=== PATIENT | female | born 1950 | race Caucasian/White ===

== ENCOUNTER 2016-12-05 10:58 | Emergency (ER) | payer MEDICARE, BC ==
[2016-12-05 11:11] VITALS: BP 122/84
--- NOTE | 2016-12-05 11:32 | UC ---
Complaint Female HPI - HPI Summary HPI Summary: Frequency and dysuria since yesterday. - History Of Current Complaint Chief Complaint: UCGU Stated Complaint: URINARY COMPLAINT Time Seen by Provider: 12/05/16 11:21 ?: No Onset/Duration: Gradual Onset Timing: Constant Severity Initially: Moderate Severity Currently: Moderate Character: Burning Aggravating Factor(s): Urination Associated Signs And Symptoms: Positive: Back Pain. Negative: Fever, Nausea, Vomiting(# Of Episodes =) - Allergies/Home Medications Allergies/Adverse Reactions: Allergies Allergy/AdvReac Type Severity Reaction Status Date / Time Codeine Allergy See Comment Verified 12/05/16 11:13 Sulfa Antibiotics Allergy Hives Verified 12/05/16 11:13 Home Medications: Home Medications Cranberry (Vaccinium Macrocarp [Cranberry] 1 tab PO DAILY PRN 12/05/16 [History Confirmed 12/05/16] Estradiol VAGINAL TAB(NF) [Vagifem] 1 tab PO SEE INSTRUCTIONS 12/05/16 [History Confirmed 12/05/16] Ibuprofen [Advil] 400 mg PO Q8HR PRN 12/05/16 [History Confirmed 12/05/16] Levothyroxine TAB* [Synthorid 112 MCG TAB*] 1 tab PO DAILY 12/05/16 [History Confirmed 12/05/16] buPROPion TAB* [Wellbutrin TAB*] 0.5 tab PO DAILY 12/05/16 [History Confirmed ] PMH/Surg Hx/FS Hx/Imm Hx Previously Healthy: Yes - she has hx of uti but last was distant. Endocrine History Of: Reports: Thyroid Disease - Surgical History Surgical History: Yes Surgery Procedure, Year, and Place: Hysterectomy; T&A; Appendectomy; tubal ligation; Umbilical hernia repair. - Family History Known Family History: Positive: Other - no related PMH. - Social History Alcohol Use: Occasionally Substance Use Type: None Smoking Status (MU): Former Smoker Have You Smoked in the Last Year: No When Did the Patient Quit Smoking/Using Tobacco: 1979 Review of Systems All Other Systems Reviewed And Are Negative: Yes Physical Exam Triage Information Reviewed: Yes Appearance: Well-Appearing, No Pain Distress, Well-Nourished Vital Signs: Initial Vital Signs Temp 98.6 F 12/05/16 11:06 Pulse 99 12/05/16 11:06 Resp 16 12/05/16 11:06 BP 122/84 12/05/16 11:06 Pulse Ox 98 12/05/16 11:06 Vital Signs Reviewed: Yes Eyes: Positive: Conjunctiva Clear. Negative: Conjunctiva Inflamed ENT Exam: Normal Neck exam: Normal Respiratory Exam: Normal Cardiovascular Exam: Normal Abdominal Exam: Other - mild tendernss of the suprapubic area and no cvat. Musculoskeletal Exam: Normal Neurological Exam: Normal Psychological Exam: Normal Skin Exam: Normal Skin: Negative: rashes Complaint Female Dx - Differential Dx/Diagnosis Provider Diagnoses: uti Discharge - Discharge Plan Condition: Good Disposition: HOME Prescriptions: Nitrofurantoin Monohyd Macro [Macrobid] 100 mg PO BID #20 cap Patient Education Materials: Urinary Tract Infection in Women (ED) Referrals: Rut Jensen MD [Primary Care Provider] - If Needed
== END 2016-12-05 11:54 | disposition home or self-care (01) ==
LOC: UCCORT 10:58
DX: N39.0 Urinary tract infection, site not specified (principal); Z87.440 Personal history of urinary (tract) infections; E07.9 Disorder of thyroid, unspecified; Z90.710 Acquired absence of both cervix and uterus; Z88.5 Allergy status to narcotic agent; Z88.2 Allergy status to sulfonamides; Z87.891 Personal history of nicotine dependence
CPT/HCPCS: 81003; 87086; 99212; G0463

== ENCOUNTER 2017-11-18 12:04 | Emergency (ER) | payer MEDICARE, BC ==
[2017-11-18 12:39] VITALS: BP 118/78
--- NOTE | 2017-11-18 12:59 | UC ---
Respiratory Complaint HPI - HPI Summary HPI Summary: Cough and congestion for about two weeks. She has had subjective fever. She has had sinus pressure. She has green sykes productive sputum. She denies lung disease/copd/asthma. She does not usually need steroids or inhalers with bronchitis. She has right chest pain with cough and deep breaths. - History of Current Complaint Chief Complaint: UCRespiratory Stated Complaint: CONGESTION Time Seen by Provider: 11/18/17 12:25 Hx Obtained From: Patient ?: No Onset/Duration: Gradual Onset, Lasting Weeks Timing: Constant Severity Initially: Moderate Severity Currently: Moderate Pain Intensity: 3 Character: Cough: Productive Aggravating Factors: Deep Breaths, Recumbent Position Alleviating Factors: Upright Position, Spontaneous Resolution Associated Signs And Symptoms: Positive: Fever, Chills, Pleuritic Chest Pain, Wheezing, URI, Nasal Congestion, Sinus Discomfort. Negative: Hemoptysis, Calf Pain, Calf Swelling - Allergies/Home Medications Allergies/Adverse Reactions: Allergies Allergy/AdvReac Type Severity Reaction Status Date / Time codeine Allergy See Comment Verified 11/18/17 12:32 Sulfa (Sulfonamide Allergy Hives Verified 11/18/17 12:32 Antibiotics) Home Medications: Home Medications Cyanocobalamin TAB* [Vitamin B12 TAB*] 1 tab DAILY 11/18/17 [History Confirmed 11/18/17] PMH/Surg Hx/FS Hx/Imm Hx Previously Healthy: Yes - Surgical History Surgical History: Yes Surgery Procedure, Year, and Place: Hysterectomy; T&A; Appendectomy; tubal ligation; Umbilical hernia repair. - Family History Known Family History: Positive: Other - no related PMH. - Social History Lives: With Family Alcohol Use: Rare Substance Use Type: None Smoking Status (MU): Former Smoker Have You Smoked in the Last Year: No When Did the Patient Quit Smoking/Using Tobacco: 1979 Review of Systems ENT: Sore Throat, Ear Ache, Sinus Congestion Respiratory: Cough All Other Systems Reviewed And Are Negative: Yes Physical Exam Triage Information Reviewed: Yes Appearance: Well-Appearing, No Pain Distress, Well-Nourished Vital Signs: Initial Vital Signs Temp 99.7 F 11/18/17 12:34 Pulse 80 11/18/17 12:34 Resp 16 11/18/17 12:34 BP 118/78 11/18/17 12:34 Pulse Ox 97 11/18/17 12:34 Vital Signs Reviewed: Yes Eyes: Positive: Conjunctiva Clear. Negative: Conjunctiva Inflamed ENT: Positive: Normal ENT inspection, Hearing grossly normal, Pharynx normal, Nasal congestion, TMs normal, TM bulging, TM dull, TM red, Tonsillar swelling, Tonsillar exudate, Uvula midline. Negative: Pharyngeal erythema, Trismus, Sinus tenderness Neck: Positive: Supple, Nontender, No Lymphadenopathy Respiratory: Positive: No respiratory distress, No accessory muscle use, Rhonchi - rhonchi mild isolated to the RLL with good air movement there and throughout.. Negative: Respiratory distress, Decreased breath sounds, Accessory muscle use, Crackles Cardiovascular: Positive: No Murmur, Pulses Normal, Brisk Capillary Refill Abdomen Description: Positive: No Organomegaly, Soft. Negative: Distended, Guarding Musculoskeletal: Positive: Strength Intact, ROM Intact, No Edema Neurological: Positive: Alert, Muscle Tone Normal. Negative: Fatigued Psychological: Positive: Age Appropriate Behavior Skin: Negative: rashes UC Diagnostic Evaluation - Laboratory O2 Sat by Pulse Oximetry: 97 Respiratory Course/Dx - Course Course Of Treatment: we discusssed supportive care. She has normal vitals, is non toxic and has a benign exam. Given sputum, chest pain and subjective fever, there may be early pneumonia. She agrees to return for any worsening symptoms. - Differential Dx/Diagnosis Provider Diagnoses: possible early pneumonia. acute bronchitis Discharge - Sign-Out/Discharge Documenting (check all that apply): Discharge - Discharge Plan Condition: Good Disposition: HOME Prescriptions: Azithromyxin HILDA (NF) [Z-Hilda (Zithromax) 250 mg tabs #6] 2 tab PO .TODAY, THEN 1 DAILY #6 tab Benzonatate CAP* [Tessalon 100 MG CAP*] 100 mg PO TID PRN #30 cap PRN Reason: Cough Patient Education Materials: Acute Bronchitis (ED) Referrals: Rut Jensen MD [Primary Care Provider] - Additional Instructions: return to pcp or here as you agreed should your symptoms worsen. - Billing Disposition and Condition Condition: GOOD Disposition: HOME
== END 2017-11-18 12:59 | disposition home or self-care (01) ==
LOC: UCCORT 12:04
DX: J20.9 Acute bronchitis, unspecified (principal); Z88.5 Allergy status to narcotic agent; Z88.2 Allergy status to sulfonamides; Z87.891 Personal history of nicotine dependence
CPT/HCPCS: 99212; G0463